=== PATIENT | female | born 2000 | race Caucasian/White ===

== ENCOUNTER 2019-06-04 01:11 | Emergency (ER) | payer OTHER ==
[~2019-06-04] VITALS: Ht 177.8 cm; Wt 63.5 kg
[2019-06-04] MEDS ORDERED: IBUPROFEN 600 MG TABLET PO ONE (02:15)
[2019-06-04] MEDS ORDERED: IBUPROFEN 600 MG TABLET ONE (02:30)
--- NOTE | 2019-06-04 03:50 | NUR ---
Patient discharged to home in stable conditon. Written and verbal after care instructions given. Patient verbalizes understanding of instructions. patient self ambulatory with steady gait. Exit care package and personal belongings taken home with the patient at discharge.
[2019-06-04 03:52] VITALS: BP 110/74
== END 2019-06-04 03:52 | disposition home or self-care (01) ==
LOC: ER 01:19
DX: S93.601A Unspecified sprain of right foot, initial encounter (principal); L03.115 Cellulitis of right lower limb; X50.1XXA Overexertion from prolonged static or awkward postures, initial encounter; Y93.39 Activity, other involving climbing, rappelling and jumping off; Y92.89 Other specified places as the place of occurrence of the external cause; Y99.8 Other external cause status
CPT/HCPCS: 73610; 73630; A4663

== ENCOUNTER 2023-06-13 16:30 | Emergency (ER) | payer OTHER ==
[~2023-06-13] VITALS: Ht 175.3 cm; Wt 71.7 kg
[2023-06-13] MEDS ORDERED: ONDANSETRON 4 MG/2 ML VIAL IV ONE (17:30)
[2023-06-13] MEDS ORDERED: IV NORMAL SALINE 1000 ML BAG IV ONE (17:30)
[2023-06-13] MEDS ORDERED: ONDANSETRON 4 MG/2 ML VIAL ONE (18:05)
[2023-06-13 18:40] LABS: BASOPHILS % (AUTO) 0.7 % (0.0-2.0); DIFFERENTIAL COMMENT 1; EOSINOPHILS # (AUTO) 0.1 K/uL (0.0-0.7); EOSINOPHILS % (AUTO) 1.4 % (0.0-7.0); HEMATOCRIT 36.9 % (31.2-41.9); LYMPHOCYTES # (AUTO) 0.5 K/uL (0.8-4.8); LYMPHOCYTES % (AUTO) 9.3 % (20.5-51.5); MEAN CORPUSCULAR HEMOGLOBIN 28.3 uug (24.7-32.8); MEAN CORPUSCULAR HGB CONC 33 g/dL (32.3-35.6); MONOCYTES # (AUTO) 0.3 K/uL (0.1-1.30); MONOCYTES % (AUTO) 6.8 % (0.0-11.0); NEUTROPHILS # (AUTO) 4.2 K/uL (1.8-8.9); NEUTROPHILS % (AUTO) 81.8 % (38.5-71.5); PLATELET COUNT (AUTO) 209 K/uL (179-408); RED BLOOD CELL COUNT(AUTO) 4.24 MIL/uL (3.63-4.92); RED CELL DISTRIBUTION WIDTH 14.1 % (12.3-17.7); WHITE BLOOD COUNT (AUTO) 5.2 K/uL (3.8-11.8)
[2023-06-13 18:50] LABS: CALCIUM 8.2 mg/dL (8.5-10.1); CREATININE 0.6 mg/dL (0.6-1.3); POTASSIUM 3.1 mmol/L (3.5-5.1)
[2023-06-13] MEDS ORDERED: AZIT250T13 PO (19:00)
[2023-06-13] MEDS ORDERED: AZITHROMYCIN 250 MG TABLET PO ONE (19:15)
[2023-06-13] MEDS ORDERED: AZITHROMYCIN 250 MG TABLET ONE (19:16)
[2023-06-13 19:20] VITALS: BP 112/63
== END 2023-06-13 19:21 | disposition home or self-care (01) ==
LOC: ER 16:33
DX: B34.9 Viral infection, unspecified (principal); J40 Bronchitis, not specified as acute or chronic; Z20.822 Contact with and (suspected) exposure to COVID-19; Z79.899 Other long term (current) drug therapy
CPT/HCPCS: 99284; 96374; 71045; 96361; 87426; 80048; 85025; 36415; J2405; J7040; A4606; A4663; Q0144

== ENCOUNTER 2024-03-21 10:31 | Emergency (ER) | payer MEDICAID, OTHER ==
[~2024-03-21] VITALS: Ht 175.3 cm; Wt 68.0 kg
[~2024-03-21 10:31] MED LIST: AZIT250T13 PO
[2024-03-21 11:02] LABS: *BILIRUBIN,URIN NEGATIVE (NEGATIVE); *BLOOD, URINE 2+ (NEGATIVE); *CLARITY,URINE CLEAR (CLEAR); *COLOR,URINE YELLOW (YELLOW); *KETONES,URINE NEGATIVE (NEGATIVE); *PROTEIN,URINE NEGATIVE (NEGATIVE); *UROBILINOGEN,URINE 0.2 E.U./dl (NORMAL); LEUKOCYTE ESTERASE ,URINE NEGATIVE (NEGATIVE); NITRITE, URINE NEGATIVE (NEGATIVE); UGLUCOSE NEGATIVE (NEGATIVE)
[2024-03-21 11:35] LABS: *URINE HCG, QUAL NEGATIVE (NEGATIVE)
[2024-03-21] MEDS ORDERED: [UNRECOGNIZED DRUG - CODE] TP (11:44)
[2024-03-21] MEDS ORDERED: CHLO473M3 PO (11:44)
[2024-03-21 11:48] LABS: BACTERIA,URINE NONE SEEN /HPF (NONE SEEN); SQUAMOUS EPITHELIAL CELL,UR FEW /HPF (NONE SEEN); WBC,URINE NONE SEEN /HPF (0-3)
[2024-03-21 12:05] VITALS: BP 118/78; O2SAT 99
== END 2024-03-21 12:06 | disposition home or self-care (01) ==
LOC: ER 10:31
DX: B01.9 Varicella without complication (principal); R10.2 Pelvic and perineal pain
CPT/HCPCS: 84703; A4606; A4663